=== PATIENT | female | born 1935 | race Two or more races ===

== ENCOUNTER 2018-08-06 10:58 | Outpatient (CLI) | payer OTHER | END 2018-08-06 11:11 | disposition home or self-care (01) | LOC: NUCLEAR 10:58 | DX: I65.29 Occlusion and stenosis of unspecified carotid artery (principal); M81.0 Age-related osteoporosis without current pathological fracture; M05.40 Rheumatoid myopathy with rheumatoid arthritis of unspecified site ==

== ENCOUNTER → 2018-11-28 | Outpatient (CLI) | payer OTHER | END | disposition home or self-care (01) | LOC: RAD 501 14:28 | DX: R07.81 Pleurodynia (principal); M54.14 Radiculopathy, thoracic region ==

== ENCOUNTER 2019-03-11 11:30 | Outpatient (CLI) | payer OTHER | END 2019-03-11 11:35 | disposition home or self-care (01) | LOC: RAD 501 11:30 | DX: M54.2 Cervicalgia (principal) ==

== ENCOUNTER → 2019-04-12 | Outpatient (CLI) | payer OTHER | END | disposition home or self-care (01) | LOC: NUCLEAR 09:00 | DX: I35.9 Nonrheumatic aortic valve disorder, unspecified (principal); I11.9 Hypertensive heart disease without heart failure; I44.7 Left bundle-branch block, unspecified; R94.31 Abnormal electrocardiogram [ECG] [EKG] ==

== ENCOUNTER 2022-01-31 08:00 | Outpatient (CLI) | payer OTHER | END 2022-01-31 08:30 | disposition home or self-care (01) | LOC: PPH VACUNA 08:00 | PROVIDERS: ATTEND Emergency Medicine Pediatric Emergency Medicine | DX: Z23 Encounter for immunization (principal) ==

== ENCOUNTER 2022-10-21 08:26 | Outpatient (CLI) | payer OTHER | END 2022-10-21 08:34 | disposition home or self-care (01) | LOC: TOM 08:26 | PROVIDERS: ATTEND Internal Medicine Gastroenterology | DX: R19.00 Intra-abdominal and pelvic swelling, mass and lump, unspecified site (principal); R10.9 Unspecified abdominal pain ==

== ENCOUNTER 2022-11-29 08:11 | Outpatient (CLI) | payer OTHER ==
[2022-12-01] MEDS ORDERED: LEVOTHYROXINE25 MCG PO (10:40)
[2022-12-01] MEDS ORDERED: COZAAR25 MG PO (10:40)
== END 2022-11-29 08:12 | disposition home or self-care (01) ==
LOC: NUCLEAR 08:11
PROVIDERS: ATTEND Surgery
DX: C21.1 Malignant neoplasm of anal canal (principal); D37.5 Neoplasm of uncertain behavior of rectum
CPT/HCPCS: 78816; A9552

== ENCOUNTER 2022-12-05 06:00 | Day surgery (SDC) | payer OTHER ==
[~2022-12-05 06:00] MED LIST: COZAAR25 MG PO; LEVOTHYROXINE25 MCG PO
[2022-12-05] MEDS ORDERED: TRAM1TAB98 PO (08:48)
== END 2022-12-05 10:15 | disposition home or self-care (01) ==
LOC: CIR.AMB 06:00
PROVIDERS: ATTEND Surgery
DX: C21.1 Malignant neoplasm of anal canal (principal); Z88.0 Allergy status to penicillin; I10 Essential (primary) hypertension; F17.210 Nicotine dependence, cigarettes, uncomplicated; Z20.822 Contact with and (suspected) exposure to COVID-19
CPT/HCPCS: 36561; C1788

== ENCOUNTER 2023-03-01 08:45 | Outpatient (CLI) | payer OTHER ==
[~2023-03-01 08:45] MED LIST changes: +TRAM1TAB98 PO
== END 2023-03-01 08:56 | disposition home or self-care (01) ==
LOC: TOM 08:45
PROVIDERS: ATTEND Internal Medicine Hematology & Oncology
DX: Z08 Encounter for follow-up examination after completed treatment for malignant neoplasm (principal); Z85.040 Personal history of malignant carcinoid tumor of rectum; C21.1 Malignant neoplasm of anal canal; D63.0 Anemia in neoplastic disease; D64.81 Anemia due to antineoplastic chemotherapy; D50.8 Other iron deficiency anemias; D51.3 Other dietary vitamin B12 deficiency anemia; D63.1 Anemia in chronic kidney disease; N18.4 Chronic kidney disease, stage 4 (severe); E78.5 Hyperlipidemia, unspecified; E44.1 Mild protein-calorie malnutrition; D53.9 Nutritional anemia, unspecified; E03.8 Other specified hypothyroidism; M06.9 Rheumatoid arthritis, unspecified

== ENCOUNTER 2023-03-08 10:33 | Outpatient (CLI) | payer OTHER | END 2023-03-08 10:41 | disposition home or self-care (01) | LOC: MRI 10:33 | PROVIDERS: ATTEND Surgery | DX: D37.5 Neoplasm of uncertain behavior of rectum (principal); C21.1 Malignant neoplasm of anal canal | CPT/HCPCS: 72197; Q9965; 72196 ==